=== PATIENT | female | born 1965 | race Hispanic/Latino ===

== ENCOUNTER 2018-02-17 06:04 | Day surgery (SDC) | payer MEDICAID ==
[~2018-02-17] VITALS: Ht 160 cm; Wt 96.6 kg
[~2018-02-17 06:04] MED LIST: SODIUM CHLORIDE 0.9% 1000ML 1,000 ML IV ONE
[2018-02-17 06:34] VITALS: BP 139/69
[2018-02-17] MEDS ORDERED: OMEP20CA10 PO (06:53)
[2018-02-17] MEDS ORDERED: LISI10TA7 PO (06:53)
[2018-02-17] MEDS ORDERED: SIMV20TA6 PO (06:53)
[2018-02-17] MEDS ORDERED: HYDR-4068 PO (06:53)
[2018-02-17] MEDS ORDERED: ASPI-555 PO (06:53)
[2018-02-17] MEDS ORDERED: METF500T6 PO (06:53)
[2018-02-17] MEDS ORDERED: PROPOFOL 10 MG/ML 20ML VIAL IV ONE (08:11)
[2018-02-17 08:24] VITALS: BP 90/43
== END 2018-02-17 08:55 | disposition home or self-care (01) ==
LOC: DAH 06:04 → ENDO 06:04
PROVIDERS: ATTEND Internal Medicine Gastroenterology
DX: K29.50 Unspecified chronic gastritis without bleeding (principal); K21.0 Gastro-esophageal reflux disease with esophagitis; I10 Essential (primary) hypertension; E78.5 Hyperlipidemia, unspecified; M19.90 Unspecified osteoarthritis, unspecified site; Z90.710 Acquired absence of both cervix and uterus; Z90.49 Acquired absence of other specified parts of digestive tract; Z79.899 Other long term (current) drug therapy; Z79.82 Long term (current) use of aspirin; Z79.84 Long term (current) use of oral hypoglycemic drugs
CPT/HCPCS: 43239; 88305; 88312; A4606; J2704; J7030